=== PATIENT | female | born 1960 | race Caucasian/White ===

== ENCOUNTER 2022-05-23 10:15 | Outpatient (RCR) | payer OTHER, SELFPAY | END 2023-04-16 16:51 | disposition home or self-care (01) | PROVIDERS: Visit Provider Physician Assistant Surgical | DX: G56.02 Carpal tunnel syndrome, left upper limb (principal); M18.0 Bilateral primary osteoarthritis of first carpometacarpal joints; Z98.890 Other specified postprocedural states; Z51.89 Encounter for other specified aftercare | CPT/HCPCS: 97035; 97110; 97140; 97165; X5282 ==

== ENCOUNTER 2022-09-30 10:00 | Outpatient (RCR) | payer OTHER, SELFPAY | END 2023-04-30 23:59 | disposition home or self-care (01) | PROVIDERS: Visit Provider Physician Assistant Medical | DX: Z98.890 Other specified postprocedural states (principal); M25.561 Pain in right knee; Z51.89 Encounter for other specified aftercare | CPT/HCPCS: 97035; 97110; 97140; 97161; 97165; 97535; X5282 ==

== ENCOUNTER 2025-04-18 09:17 | Emergency (ER) | payer BC, SELFPAY ==
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
[2025-04-18 09:25] VITALS: BP 152/94; PULSE 75; RESP 16; TEMP 36.5; O2SAT 96; BMI 27.8
--- NOTE | 2025-04-18 09:32 | CRLHL7_ITS ---
For Patients: As a result of the 21st Century Cures Act, medical imaging exams and procedure reports are released immediately into your electronic medical record. You may view this report before your referring provider. If you have questions, please contact your health care provider. INDICATION: Trauma COMPARISON: None TECHNIQUE: CT examination of the head was performed as axial sections without intravenous contrast. Images were obtained from the vertex of the skull through the skull base. Please note that all CT scans at this facility use dose modulation, iterative reconstruction, and/or weight-based dosing when appropriate to reduce radiation dose to as low as reasonably achievable. FINDINGS: There is a large mass in the right frontal lobe measuring about 4.3 by 3.3 by 4.2 centimeters. This has had low-density central area and a hyperdense wall. There is also a 2nd nodule adjacent to this near the falx on the right best seen on series 2, image 33 measuring about 1 centimeter. This is probably malignant though occasionally an abscess can create this appearance. There is significant surrounding vasogenic edema with mass effect upon the right lateral ventricular system and about 5 millimeters of leftward shift without elie herniation. There are additional areas of low-density identified particularly the inferior left frontal lobe and the left temporal tip. This suggests the possibility of additional lesions in these areas that are not specifically identified on this noncontrast study. An MRI with gadolinium is recommended for further evaluation. No hemorrhage or abnormal extra-axial fluid collections. There are findings suggesting diffuse cerebral edema. The ventricles are effaced probably due to diffuse edema. The visualized portions of the orbits are normal in appearance. The osseous structures are normal in their appearance with no sign of abnormality in the skull base or calvarium. I discussed the above findings with Dr. Zuñiga at 10 a.m. on April 18, 2025 IMPRESSION: 1. There is a large mass in the right frontal lobe measuring 4.3 x 3.3 x 2.3 centimeters with significant surrounding edema and associated mass effect. There is about 5 millimeters of leftward shift without elie herniation. An additional adjacent 1 centimeter mass is noted. Additional areas of low-density are identified separate from the above-mentioned mass suggesting there are other lesions that are not specifically identified on this study. These lesions are likely malignant. An MRI with gadolinium is advised. 2. Findings suggesting diffuse cerebral edema. 3. No hemorrhage. Please note that all CT scans at this facility use dose modulation, iterative reconstruction, and/or weight-based dosing when appropriate to reduce radiation dose to as low as reasonably achievable. Dictated by Lg Henderson MD @ 04/18/2025 10:02:52 AM (Electronically Signed)
--- NOTE | 2025-04-18 09:58 | CRLHL7_ITS ---
For Patients: As a result of the Century Cures Act, medical imaging exams and procedure reports are released immediately into your electronic medical record. You may view this report before your referring provider. If you have questions, please contact your health care provider. INDICATION: Nausea. Fall. Hit head. Altered mental status. TECHNIQUE: Brain MRI with and without contrast. 15 cc of Dotarem gadolinium based intravenous contrast administered. COMPARISON: CT from 04/18/2025. FINDINGS: Multiple enhancing lesions within the right frontal lobe, corpus callosum and cingulate gyrus. The dominant ring-enhancing mass lesion within the right middle frontal gyrus and centrum semiovale measures 3.2 x 3.3 centimeters in axial plane and 3.4 centimeters in craniocaudal plane. Contiguous ill-defined is present laterally and medially. There is a nearly contiguous nodule within the right-sided corpus callosum along the margins of the lateral ventricle which measures 14 x 16 millimeters in axial plane and 1.4 centimeters in craniocaudal plane. Oval ring enhancing nodule within the right cingulate gyrus which measures 8 x 12 millimeters in axial plane and 10 millimeters in craniocaudal plane. These are all superimposed upon confluent FLAIR hyperintense signal abnormality which involves the right superior frontal lobe, the cingulate gyri, corpus callosum and anterior/basal frontal regions. Mass effect results in effacement of the mid to anterior portions of both lateral ventricles as well as the 3rd ventricle. There is leftward displacement of the anterior cerebral arteries. There is up to 10 millimeters of [id number] midline shift. No evidence of herniation. No evidence of acute ischemia. Mild diffusion restriction of the ring-enhancing portion of the dominant right frontal lesion likely reflects high cellularity. Stippled susceptibility artifact within the right frontal lesion compatible with calcification or degraded blood products. No hydrocephalus. Posterior fossa is normal. All the major intracranial vascular structures demonstrate normal flow-related signal. The orbital contents are normal. No calvarial or skull base marrow signal abnormality. No obstructive sinus disease. No extracranial soft tissue findings. IMPRESSION: 1. Findings suspicious for a multifocal glioblastoma with multiple enhancing lesions as detailed above, superimposed upon a bed of extensive FLAIR hyperintense signal abnormality. Multiple intracranial metastases are considered to be less likely. Mass effect and up to 10 millimeters of [id number] midline shift. Effacement of the ventricular system without evidence of ventricular entrapment. Dictated by Reggie Parker MD @ 04/18/2025 12:57:49 PM (Electronically Signed)
--- NOTE | 2025-04-18 10:08 | ED_ITS ---
HPI - General Adult General Chief complaint: Fall/Minor Trauma Stated complaint: last week fall- headache still there Time Seen by Provider: 04/18/25 10:00 History of Present Illness HPI narrative: This 64-year-old female comes in with her daughter reporting a headache over the past week or so. She states that she fell about a week ago because she became nauseated and was temporarily lightheaded. She does not report any injury from that event. She comes in today because of persisting headache. Related Data Home Medications ?Medication ?Instructions ?Recorded ?Confirmed betamethasone dipropionate 0.05 % applic topical 04/0906/27/24 topical cream diclofenac sodium 1 % topical gel topical 04/09/22 estradiol 0.5 mg tablet 0.5 mg PO QDAY 04/09/2206/12 gabapentin 300 mg capsule mg PO BID 04/09/22 06/27/24 hydroxyzine HCl 25 mg tablet mg PO 04/09/22 06/27/24 loratadine 10 mg tablet 10 mg PO QDAY PRN allergy sy mptoms 04/09/22 06/27/24 montelukast 10 mg tablet 10 mg PO QDAY 04/09/2204/18 nabumetone 500 mg tablet 500 mg PO QDAY 04/09/2206/12 olopatadine 0.1 % eye drops 1 drp ophthalmic (eye) .Bi d Prn 04/09/22 06/27/24 progesterone micronized 200 mg 200 mg PO 04/09/2206/12 capsule rosuvastatin 40 mg tablet 40 mg PO .Bedtime 04/09/22 0 04/18/25 acetaminophen 325 mg tablet 650 mg PO Q6H 04/16/22 acyclovir 800 mg tablet 800 mg PO PRN 04/16/2206/27 benzonatate 100 mg capsule cap PO 04/16/22 06/27/24 celecoxib 200 mg capsule 200 mg PO BID 04/16/2206/27 cephalexin 500 mg capsule 500 mg PO TID 04/16/2206/27 cetirizine 10 mg tablet 10 mg PO QDAY 04/16/2206/27 cyclobenzaprine 10 mg tablet 10 mg PO BID PRN 04/16/22 06/27/24 fluconazole 150 mg tablet 150 mg PO PRN 04/16/2206/27 triamcinolone acetonide 0.5 % g topical 04/16/2206/27 topical cream zolmitriptan 2.5 mg tablet 2.5 mg PO .prn PRN migraine 04/16/22 04/18/25 headache Previous Rx's ?Medication ?Instructions ?Recorded ondansetron 4 mg disintegrating 4 mg PO Q6H PRN nausea and 06/28/24 tablet vomiting #20 tabs Allergies Allergy/AdvReac Type Severity Reaction Status Date / Time dog dander Allergy Intermediate Sinus Verified 06/27/24 17:01 irritation oseltamivir Allergy Unknown Verified 06/27/24 17:01 clavulanic acid (From AdvReac Intermediate Abdominal Verified 06/27/24 17:01 Augmentin) Pain codeine AdvReac Mild High Verified 06/27/24 17:01 feeling floating Cat hair extract Allergy Intermediate Sinus Uncoded 06/27/24 17:01 irritation Molds & Smuts Allergy Intermediate Sinus Uncoded 06/27/24 17:01 irritation CI Pigment Blue 63 Allergy Unknown Uncoded 06/27/24 17:01 Clavulanate Allergy Unknown Uncoded 06/27/24 17:01 smoke Allergy Unknown Uncoded 06/27/24 17:01 Review of Systems Status of ROS: Reports: 10 or more systems reviewed and unremarkable except as noted in History and below Narrative: Constitutional: No fevers, no weight gain or loss. Eyes: No discharge. No vision changes. HENT: No congestion, no sore throat, no ear pain. Cardiovascular: No chest pain, no palpitations. Respiratory: No shortness of breath, no wheezes, no cough. Gastrointestinal: No abdominal pain, no vomiting, no diarrhea. Genitourinary: No dysuria, no hematuria. Musculoskeletal: Normal range of motion. Skin: No rashes, no pruritis. Neurological: No dizziness, weakness, sensory change, speech change. She reports a headache. Endo/Heme/Allergies: No bruising or bleeding. No polydipsia. Pysch: no suicidality, no anxiety, no insomnia. All other systems reviewed and are negative. [facility] Medical History (Updated 04/18/25 @ 18:08 by Pieter Zuñiga MD) Migraine ?G43.909 - Migraine, unspecified, not intractable, without status migrainosus (ICD-10) Arthritis ?M19.90 - Unspecified osteoarthritis, unspecified site (ICD-10) Carpal tunnel syndrome of right wrist ?G56.01 - Carpal tunnel syndrome, right upper limb (ICD-10) Hypercholesteremia ?E78.00 - Pure hypercholesterolemia, unspecified (ICD-10) Surgical History (Updated 05/28/22 @ 15:50 by Marta Wolfe ~ [facility], [facility]) History of prior ablation treatment ?Z98.890 - Other specified postprocedural states (ICD-10) History of D&C ?Z98.890 - Other specified postprocedural states (ICD-10) Previous section ?Z98.891 - History of uterine scar from previous surgery (ICD-10) History of foot surgery (09/17/16) ?Z98.890 - Other specified postprocedural states (ICD-10) History of carpal tunnel surgery of right wrist ?Z98.890 - Other specified postprocedural states (ICD-10) Family History (Updated 05/28/22 @ 15:51 by Marta Wolfe ~ [facility], [facility]) Father Coronary artery disease Familial hypercholesterolemia Mother No problems noted. Other Stroke Social History (Updated 04/16/22 @ 11:12 by Marta Wolfe ~ [facility], [facility]) Smoking Status: Never smoker Do you use any of these nicotine containing products: None Second hand tobacco smoke exposure: No How often do you have a drink containing alcohol: never AUDIT-C Alcohol total score: 0 Non-prescribed substance use: denies use service: No Exam Narrative: Exam Narrative: Constitutional: Well-developed, well-nourished, no acute distress. HEENT: Normocephalic, atraumatic. Neck: Normal range of motion. Nontender. Supple. Heart: Regular. No murmurs. Normal rate. Intact distal pulses. Lungs: Clear to auscultation. No chest discomfort. No wheezes, rhonchi, or rales. Abdomen: Normal bowel sounds. Nontender. No rebound tenderness. Genitalia: Deferred. Back: No midline tenderness. Normal range of motion. Extremities: Normal range of motion. No injury. Skin: Intact. No rash. Warm. No erythema or pallor. Neurologic: No altered sensation. No weakness. Alert and oriented. No facial asymmetry. Tongue is midline. [id number] is normal. No pronator drift. Final [employer] And Tester strength is equal bilaterally. Able to raise each leg from the bed. Psychiatric: No suicidality. No anxiety or depression. No insomnia. Nursing notes and vitals signs are reviewed. Const: Vital Signs, click to edit/add: Vital Signs - 24 hr 04/18/25 09:25 04/18/25 13:42 04/18/25 16:49 Temperature 97.7 F 99.0 F 98.7 F Pulse Rate [Pulse Oximeter] 75 65 72 Respiratory Rate 16 18 18 Blood Pressure [Ri ght Upper Arm] 152/94 H 148/119 H 153/93 H Pulse Oximetry 96 95 95 Oxygen Delivery Me thod Room Air Room Air Room Air Course Vital Signs Vital signs: Initial Vital Signs Temperature 97.7 F 04/18/25 09:25 Temperature Source Temporal Artery Scan 04/18/25 09:25 Pulse Rate 75 04/18/25 09:25 Respiratory Rate 16 04/18/25 09:25 Blood Pressure 152/94 H 04/18/25 09:25 Blood Pressure Mean 113 H 04/18/25 09:25 Blood Pressure Position Sitting 04/18/25 09:25 Pulse Oximetry 96 04/18/25 09:25 Oxygen Delivery Method Room Air 04/18/25 09:25 Vital Signs Temperature 97.7 F 04/18/25 09:25 Pulse Rate 75 04/18/25 09:25 Respiratory Rate 16 04/18/25 09:25 Blood Pressure 152/94 H 04/18/25 09:25 Pulse Oximetry 96 04/18/25 09:25 Oxygen Delivery Method Room Air 04/18/25 09:25 Temperature 98.7 F 04/18/25 16:49 Pulse Rate 72 04/18/25 16:49 Respiratory Rate 18 04/18/25 16:49 Blood Pressure 153/93 H 04/18/25 16:49 Pulse Oximetry 95 04/18/25 16:49 Oxygen Delivery Method Room Air 04/18/25 16:49 Medications Administered Medications: Discontinued Medications Generic Name Dose Route Start Last Admin Trade Name Freq PRN Reason Stop Dose Admin Acetaminophen 1,000 mg 04/18/25 16:08 04/18/25 16:30 Acetaminophen 500 Mg Tablet PO 04/18/25 16:09 1,000 mg ONCE ONE Administration Medical Decision Making MDM Narrative Medical decision making narrative: This patient comes in reporting a headache and had fallen because of nausea and lightheadedness about a week prior to this. CT imaging was obtained and shows evidence of a mass in the right frontal region. Radiologist is recommending MRI with contrast. This was obtained and shows findings suspicious of a glioblastoma. There is a midline shift of about 10 mm. The patient does not have any neurologic deficits. I did speak with a neuro surgeon on-call at [facility], Dr. Harmon, who recommended transfer there for ongoing diagnosis and management. Dr. Burns is the hospitalist [facility] accepting physician. The patient is able to go by ambulance. She did receive Tylenol 1000 mg but did not get any other treatments. The neurosurgeon stated that she should not get Decadron or Keppra at this time. Lab Data Labs: Lab Results 04/18/25 Range/Units 10:11 WBC 5.36 (4.50-11.00) K/uL RBC 4.40 (4.00-5.20) m/uL Hgb 13.4 (12.0-16.0) gm/dL Hct 39.5 (33.0-51.0) % MCV 90 (80-100) fL MCH 31 (26-34) pg MCHC 34 (32-36) gm/dL RDW Coeff of Jorge 12.5 (11.5-15.5) % Plt Count 240 (140-440) K/uL Neut % (Auto) 74.0 H (42.0-72.0) % Lymph % (Auto) 19.4 L (20-44) % Cooper % (Auto) 6.2 (0.0-11.0) % Eos % (Auto) 0.2 (0.0-7.0) % Baso % (Auto) 0.2 (0.0-3.0) % Neut # (Auto) 4.00 (1.7-7.0) K/uL Lymph # (Auto) 1.00 (0.90-2.90) K/uL Cooper # (Auto) 0.30 (0.00-0.90) K/UL Eos # (Auto) 0.01 (0.00-0.50) K/uL Baso # (Auto) 0.01 (0.00-0.30) K/uL Abs Immat Gran (auto) 0.00 (0.00-0.30) K/uL Imm/Tot Granulo (auto) 0.0 % Sodium 142 (135-149) mmol/L Potassium 3.7 (3.6-5.1) mmol/L Chloride 107 (96-114) mmol/L Carbon Dioxide 27 (20-32) mmol/L Anion Gap 8 (7-15) mEq/L BUN 12 (7-30) mg/dL Creatinine 0.7 (0.5-1.5) mg/dL Estimated Creat Clear 47.01 Estimated GFR 97 ml/min Glucose 111 (60-115) mg/dL Calcium 9.7 (8.4-10.6) mg/dL Total Bilirubin 0.9 (0.1-1.5) mg/dL Direct Bilirubin 0.1 (0.0-0.5) mg/dL AST 28 (12-35) U/L ALT 18 (4-35) U/L Alkaline Phosphatase 84 (40-150) U/L Total Protein 7.1 (6.0-8.3) g/dL Albumin 4.4 (3.3-5.0) g/dL Imaging Data CT scan - head: Radiologist's impression: 1. There is a large mass in the right frontal lobe measuring 4.3 x 3.3 x 2.3 centimeters with significant surrounding edema and associated mass effect. There is about 5 millimeters of leftward shift without elie herniation. An additional adjacent 1 centimeter mass is noted. Additional areas of low-density are identified separate from the above-mentioned mass suggesting there are other lesions that are not specifically identified on this study. These lesions are likely malignant. An MRI with gadolinium is advised. 2. Findings suggesting diffuse cerebral edema. 3. No hemorrhage. MR Brain: Radiologist's impression: 1. Findings suspicious for a multifocal glioblastoma with multiple enhancing lesions as detailed above, superimposed upon a bed of extensive FLAIR hyperintense signal abnormality. Multiple intracranial metastases are considered to be less likely. Mass effect and up to 10 millimeters of [id number] midline shift. Effacement of the ventricular system without evidence of ventricular entrapment. Discharge Plan Discharge Clinical Impression: Glioblastoma Patient Disposition: [facility] Condition: Unchanged Prescriptions: No Action diclofenac sodium 1 % gel topical rosuvastatin 40 mg tablet 40 mg PO .Bedtime nabumetone 500 mg tablet 500 mg PO QDAY loratadine 10 mg tablet 10 mg PO QDAY PRN (Reason: allergy symptoms) estradiol 0.5 mg tablet 0.5 mg PO QDAY montelukast 10 mg tablet 10 mg PO QDAY gabapentin 300 mg capsule PO BID betamethasone dipropionate 0.05 % cream topical hydroxyzine HCl 25 mg tablet PO progesterone micronized 200 mg capsule 200 mg PO olopatadine 0.1 % drops 1 drp ophthalmic (eye) .Bid Prn cephalexin 500 mg capsule 500 mg PO TID acyclovir 800 mg tablet 800 mg PO PRN celecoxib 200 mg capsule 200 mg PO BID cyclobenzaprine 10 mg tablet 10 mg PO BID PRN acetaminophen 325 mg tablet 650 mg PO Q6H zolmitriptan 2.5 mg tablet 2.5 mg PO .prn PRN (Reason: migraine headache) benzonatate 100 mg capsule PO fluconazole 150 mg tablet 150 mg PO PRN cetirizine 10 mg tablet 10 mg PO QDAY triamcinolone acetonide 0.5 % cream topical ondansetron 4 mg tablet,disintegrating 4 mg PO Q6H PRN (Reason: nausea and vomiting) Qty: 20 0RF Stand Alone Forms: [facility] Info Instructions
[2025-04-18 10:22] LABS: Hematocrit 39.5 % (33.0-51.0); Hemoglobin* 13.4 gm/dL (12.0-16.0); Immature Granulocytes Abs Auto 0.00 K/uL (0.00-0.30); Immature Granulocytes Pct Auto 0.0 %; Mean Corpuscular HGB Conc 34 gm/dL (32-36); Mean Corpuscular Hemoglobin 31 pg (26-34); Mean Corpuscular Volume 90 fL (80-100); RDW Coefficient of Variation % 12.5 % (11.5-15.5); Red Blood Count 4.40 m/uL (4.00-5.20); White Blood Count* 5.36 K/uL (4.50-11.00)
[2025-04-18 10:23] LABS: Lymphocytes Absolute Auto 1.00 K/uL (0.90-2.90); Slide Review Reflex No
[2025-04-18 10:32] LABS: Albumin* 4.4 g/dL (3.3-5.0); Chloride* 107 mmol/L (96-114); Potassium* 3.7 mmol/L (3.6-5.1); Sodium* 142 mmol/L (135-149)
[2025-04-18 10:35] LABS: Alanine Aminotransferase* 18 U/L (4-35); Alkaline Phosphatase* 84 U/L (40-150); Anion Gap 8 mEq/L (7-15); Aspartate Amino Transferase* 28 U/L (12-35); Bilirubin Direct* 0.1 mg/dL (0.0-0.5); Bilirubin Total* 0.9 mg/dL (0.1-1.5); Blood Urea Nitrogen* 12 mg/dL (7-30); Calcium* 9.7 mg/dL (8.4-10.6); Carbon Dioxide* 27 mmol/L (20-32); Creatinine* 0.7 mg/dL (0.5-1.5); Est. Creatinine Clearance* 47.01; Estimated Glomerular Filt Rate 97 ml/min; Glucose* 111 mg/dL (60-115); Total Protein* 7.1 g/dL (6.0-8.3)
[2025-04-18 13:42] VITALS: BP 148/119; PULSE 65; RESP 18; TEMP 37.2; O2SAT 95
[2025-04-18] MEDS: ACETAMINOPHEN 500 MG TABLET 1000 MG PO (16:30)
[2025-04-18 16:49] VITALS: BP 153/93; PULSE 72; RESP 18; TEMP 37.1; O2SAT 95
[2025-04-18 18:20] VITALS: BP 154/92; PULSE 74; RESP 18; TEMP 37.1; O2SAT 94
== END 2025-04-18 19:09 | disposition short-term general hospital (02) ==
PROVIDERS: Emergency Provider Emergency Medicine Emergency Medical Services; PCP Physician Assistant Medical
DX: C71.9 Malignant neoplasm of brain, unspecified (principal)
CPT/HCPCS: 36415; 70450; 70552; 80048; 80076; 85025; 99284; 99285; A9270; A9575

== ENCOUNTER 2025-04-18 18:54 | Outpatient (CLI) | payer BC, SELFPAY | END 2025-04-18 18:55 | disposition home or self-care (01) | LOC: AMB 04-20 13:37 | PROVIDERS: PCP Physician Assistant Medical; Visit Provider Student in an Organized Health Care Education/Training Program | DX: C71.9 Malignant neoplasm of brain, unspecified (principal) | CPT/HCPCS: A0425; A0429 ==